=== PATIENT | female | born 1955 ===

== ENCOUNTER 2017-05-11 17:10 | Emergency (ER) | payer OTHER ==
[2017-05-11 17:19] VITALS: BP 119/69; PULSE 65; RESP 16; TEMP 97.9; O2SAT 98
[2017-05-11] MEDS ORDERED: Sodium Chloride 0.9% 1,000 ML IV STA (17:46)
[2017-05-11 18:31] LABS: RBC URINE 3 /hpf (0-3); URINE BILIRUBIN NEGATIVE (NEGATIVE); URINE BLOOD NEGATIVE (NEGATIVE); URINE COLOR YELLOW (YELLOW); URINE GLUCOSE (UA) NEG (Normal); URINE KETONE NEGATIVE (NEGATIVE); URINE LEUKOCYTE ESTERASE NEG Leu/uL (Negative); URINE PROTEIN NEGATIVE (NEGATIVE); URINE UROBILINOGEN 0.2-1.0 mg/dL (0.2-1.0); WBC URINE 1 /hpf (0-5)
[2017-05-11 18:33] LABS: BASO % 0.6 % (0.0-2.0); EOS # 0.2 K/uL (0.0-0.7); EOS % 3.1 % (0.0-4.0); HEMATOCRIT 36.8 % (34.0-47.0); LYMPH # 1.8 K/uL (1.0-4.3); MEAN CELL VOLUME 87.1 fl (81.0-99.0); MEAN CORPUSCULAR HEMOGLOBIN 28.7 pg (27.0-31.0); MEAN CORPUSCULAR HGB CONC 32.9 g/dL (33.0-37.0); MEAN PLATELET VOLUME 7.4 fl (7.2-11.7); MONO # 0.4 K/uL (0.0-0.8); MONO % 7.5 % (0.0-10.0); NEUT # 3.4 K/uL (1.8-7.0); NEUT % 57.8 % (50.0-75.0); NRBC % 0.1 % (0.0-0.0); RED CELL DISTRIBUTION WIDTH 13.1 % (11.5-14.5)
[2017-05-11 18:39] LABS: ALB/GLOB RATIO 1.4 (1.0-2.1); ALKALINE PHOSPHATASE 58 U/L (38-126); ALT/SGPT 42 U/L (9-52); AST/SGOT 32 U/L (14-36); BILIRUBIN,TOTAL 0.1 mg/dl (0.2-1.3); BLOOD UREA NITROGEN 22 mg/dl (7-17); CALCIUM 9.6 mg/dL (8.4-10.2); CARBON DIOXIDE 28 mmol/L (22-30); CHLORIDE 104 mmol/L (98-107); GFR AFRICAN-AMERICAN > 60; GLUCOSE,RANDOM 95 mg/dL (65-105); POTASSIUM 4.2 MMOL/L (3.6-5.0); SODIUM 142 mmol/l (132-148); TOTAL PROTEIN 7.4 G/DL (6.3-8.2)
[2017-05-11 19:10] LABS: THYROID STIMULATING HORMONE 2.22 mIU/ML (0.46-4.68)
--- NOTE | 2017-05-11 21:58 | ED PDOC ---
HPI: Back Time Seen by Provider: 05/11/17 17:28 Chief Complaint (Nursing): Back Pain Chief Complaint (Provider): Low back pain History Per: Patient History/Exam Limitations: no limitations Onset/Duration Of Symptoms: Days Current Symptoms Are (Timing): Still Present Quality Of Discomfort: Sharp Additional Complaint(s): Pt has not taken medications at home for pain. Pt also states yesterday she had an episode of dizziness due to severe pain and states she almost fell. Denies chest pain, SOB. Past Medical History Reviewed: Historical Data, Nursing Documentation, Vital Signs Vital Signs: Last Vital Signs Temp 97.9 F 05/11/17 17:15 Pulse 65 05/11/17 17:15 Resp 16 05/11/17 17:15 BP 119/69 05/11/17 17:15 Pulse Ox 98 05/11/17 17:15 - Medical History PMH: Hypothyroidism Denies: CAD, Diabetes, HTN - Surgical History Surgical History: No Surg Hx - Family History Family History: States: No Known Family Hx - Living Arrangements Living Arrangements: With Family - Social History Current smoker - smoking cessation education provided: No Alcohol: None Drugs: Denies - Home Medications Home Medications: Ambulatory Orders Medication Instructions Recorded Naproxen [Naprosyn] 500 mg PO BID #20 tablet 05/11/17 - Allergies Allergies/Adverse Reactions: Allergies Allergy/AdvReac Type Severity Reaction Status Date / Time No Known Allergies Allergy Verified 05/11/17 17:15 Review of Systems ROS Statement: Except As Marked, All Systems Reviewed And Found Negative Constitutional: Negative for: Fever, Chills Cardiovascular: Negative for: Chest Pain Respiratory: Negative for: Cough, Shortness of Breath, SOB with Exertion Gastrointestinal: Negative for: Nausea, Vomiting Musculoskeletal: Positive for: Back Pain Neurological: Positive for: Headache, Dizziness Physical Exam - Reviewed Nursing Documentation Reviewed: Yes Vital Signs Reviewed: Yes - Physical Exam Appears: Positive for: Well, Non-toxic, No Acute Distress Head Exam: Positive for: ATRAUMATIC, NORMAL INSPECTION, NORMOCEPHALIC Skin: Positive for: Normal Color, Warm, DRY Eye Exam: Positive for: Normal appearance ENT: Positive for: Normal ENT Inspection Neck: Positive for: Normal, Painless ROM Cardiovascular/Chest: Positive for: Regular Rate, Rhythm Respiratory: Positive for: CNT, Normal Breath Sounds Gastrointestinal/Abdominal: Positive for: Normal Exam, Bowel Sounds, Soft. Negative for: Tenderness Back: Positive for: Vertebral Tenderness. Negative for: Normal Inspection Extremity: Positive for: Normal ROM Neurologic/Psych: Positive for: Alert, Oriented - Laboratory Results Result Diagrams: 05/11/17 18:20 05/11/17 18:20 - ECG O2 Sat by Pulse Oximetry: 98 Disposition - Clinical Impression Clinical Impression: Back pain - Patient ED Disposition Is Patient to be Admitted: No - Disposition Disposition: Routine/Home Disposition Time: 21:50 Condition: STABLE Prescriptions: Naproxen [Naprosyn] 500 mg PO BID #20 tablet Instructions: Back Pain (ED) Forms: [facility] (Serbian) Print Language: VIETNAMESE
--- NOTE | 2017-05-12 08:19 | CT ---
PROCEDURE: CT HEAD WITHOUT CONTRAST. HISTORY: headaches, dizziness COMPARISON: 11/02/2011. TECHNIQUE: Axial computed tomography images were obtained through the head/brain without intravenous contrast. Radiation dose: Total exam DLP = 824.94 mGy-cm. This CT exam was performed using one or more of the following dose reduction techniques: Automated exposure control, adjustment of the mA and/or kV according to patient size, and/or use of iterative reconstruction technique. FINDINGS: HEMORRHAGE: No intracranial hemorrhage. BRAIN: Padilla-white matter differentiation is preserved. There is no mass, mass effect or abnormal extra-axial fluid collection. VENTRICLES: The ventricles are normal in size, shape and configuration. CALVARIUM: The skull base and calvarium are normal. PARANASAL SINUSES: Predominantly clear. MASTOID AIR CELLS: Predominantly clear. OTHER FINDINGS: None. IMPRESSION: No acute intracranial abnormality. A preliminary report was provided by [facility] [facility].
--- NOTE | 2017-05-12 10:42 | RAD ---
PROCEDURE: Radiographs of the Lumbar Spine. HISTORY: low back pain, worse 3 days, history of arthritis COMPARISON: No prior. FINDINGS: BONES: There is normal alignment of the lumbar vertebral bodies. Lumbar lordosis is maintained. Vertebral bodies are normal in height. There is no acute fracture, spondylolysis or spondylolisthesis. DISC SPACES: There is moderate multilevel degenerative disc disease with anterior osteophytes, reduced disc heights and multilevel facet arthropathy, worse at L5-S1. OTHER FINDINGS: None. IMPRESSION: Multilevel degenerative disc disease, worse at L5-S1.
--- NOTE | 2017-05-12 16:38 | CARD ---
APPROVED REPORT EKG Measurement Heart [id number] <Conclusion> Normal sinus rhythm Normal ECG
== END 2017-05-11 21:54 | disposition home or self-care (01) ==
LOC: H.ER 17:10
DX: M51.37 Other intervertebral disc degeneration, lumbosacral region (principal)
CPT/HCPCS: 70450; 72100; 80053; 81003; 84443; 84484; 85025; 87086; 93005; 96361; 96374; 99282; J1885; J7040

== ENCOUNTER 2017-05-19 13:57 | Emergency (ER) | payer OTHER ==
[2017-05-19 14:17] VITALS: BP 109/63; PULSE 61; RESP 18; TEMP 97; O2SAT 99
--- NOTE | 2017-05-19 14:42 | ED PDOC ---
HPI: Abdomen Time Seen by Provider: 05/19/17 14:26 Chief Complaint (Nursing): Abdominal Pain Chief Complaint (Provider): Abdominal pain History Per: Patient History/Exam Limitations: no limitations Onset/Duration Of Symptoms: Days Outside of [place] travel?: No Current Symptoms Are (Timing): Still Present Location Of Pain/Discomfort: RLQ Quality Of Discomfort: "Pain" Associated Symptoms: denies: Nausea, Vomiting, Back Pain, Urinary Symptoms Last Bowel Movement: Days Ago (2) Additional Complaint(s): 62yo female, history of thyroid disease and currently on Levothyroxin, diverticular disease, presents to ED for evaluation of abdominal pain, present for the past 1 week, mostly present in her right lower quadrant. She states over the past 2 days, she has had no bowel movements and prior to that, the stool she produced was thin in caliber. She denies any bloody stools, nausea, vomiting, fever, chills. Of note, patient was seen in this facility approximately 2 weeks ago for lower back pain, she had an XR which revealed no bony abnormalities. Patient offers no other medical complaints. Abnormal Vaginal Bleeding: No Past Medical History Reviewed: Historical Data, Nursing Documentation, Vital Signs Vital Signs: Last Vital Signs Temp 97.0 F L 05/19/17 14:14 Pulse 61 05/19/17 14:14 Resp 18 05/19/17 14:14 BP 109/63 05/19/17 14:14 Pulse Ox 99 05/19/17 14:46 - Medical History PMH: Hypothyroidism Denies: CAD, Diabetes, HTN - Surgical History Surgical History: No Surg Hx - Family History Family History: States: No Known Family Hx - Social History Current smoker - smoking cessation education provided: No Ex-Smoker (has not smoked in the last 12 months): No Alcohol: None Drugs: Denies - Home Medications Home Medications: Ambulatory Orders Medication Instructions Recorded Naproxen [Naprosyn] 500 mg PO BID #20 tablet 05/11/17 - Allergies Allergies/Adverse Reactions: Allergies Allergy/AdvReac Type Severity Reaction Status Date / Time No Known Allergies Allergy Verified 05/11/17 17:15 Review of Systems ROS Statement: Except As Marked, All Systems Reviewed And Found Negative Constitutional: Negative for: Fever, Chills Gastrointestinal: Positive for: Abdominal Pain. Negative for: Nausea, Vomiting , Hematochezia Genitourinary Female: Negative for: Dysuria, Frequency, Hematuria, Vaginal Discharge, Vaginal Bleeding Physical Exam - Reviewed Nursing Documentation Reviewed: Yes Vital Signs Reviewed: Yes - Physical Exam Appears: Positive for: Non-toxic, Uncomfortable Head Exam: Positive for: ATRAUMATIC, NORMAL INSPECTION, NORMOCEPHALIC Skin: Positive for: Normal Color, Warm, Dry Eye Exam: Positive for: Normal appearance Neck: Positive for: Supple Cardiovascular/Chest: Positive for: Regular Rate, Rhythm Respiratory: Positive for: Normal Breath Sounds Gastrointestinal/Abdominal: Positive for: Bowel Sounds (normal), Soft, Tenderness (right lower quadrant mild tenderness), Other (mild edema). Negative for: Rebound Back: Positive for: Normal Inspection, Other (mild lower lumbar tenderness bilateraly). Negative for: L CVA Tenderness, R CVA Tenderness Extremity: Positive for: Normal ROM. Negative for: Deformity Neurologic/Psych: Positive for: Alert, Oriented - ECG O2 Sat by Pulse Oximetry: 99 (RA) Pulse Ox Interpretation: Normal Medical Decision Making Medical Decision Making: Time: 1430 Impression: Right lower quadrant pain; rule out diverticulitis, appendicitis, UTI Plan: -- CT AP w/ IV contrast -- XR obstructive series -- Labs -- Urinalysis Reassess Scribe Attestation: Documented by Yael Baxter acting as a scribe for Christine Nicholson MD. Provider Attestation: All medical record entries made by the Scribe were at my direction and personally dictated by me. I have reviewed the chart and agree that the record accurately reflects my personal performance of the history, physical exam, medical decision making, and the department course for this patient. I have also personally directed, reviewed, and agree with the discharge instructions and disposition. Disposition - Clinical Impression Clinical Impression: Abdominal pain - Patient ED Disposition Is Patient to be Admitted: Transfer of Care - Disposition Disposition: Transfer of Care Disposition Time: 15:00 Condition: STABLE Forms: [employer] (Kenyan) Patient Signed Over To: Jeffrey Mills Present On Arrival: None
[2017-05-19 15:04] LABS: BASO % 0.3 % (0.0-2.0); EOS # 0.1 K/uL (0.0-0.7); EOS % 2.3 % (0.0-4.0); HEMATOCRIT 40.1 % (34.0-47.0); LYMPH # 1.7 K/uL (1.0-4.3); LYMPH % 30.5 % (20.0-40.0); MEAN CELL VOLUME 87.6 fl (81.0-99.0); MEAN CORPUSCULAR HEMOGLOBIN 28.9 pg (27.0-31.0); MEAN CORPUSCULAR HGB CONC 32.9 g/dL (33.0-37.0); MEAN PLATELET VOLUME 7.9 fl (7.2-11.7); MONO # 0.3 K/uL (0.0-0.8); NEUT # 3.4 K/uL (1.8-7.0); NEUT % 60.9 % (50.0-75.0); NRBC % 0.2 % (0.0-0.0); RED CELL DISTRIBUTION WIDTH 13.6 % (11.5-14.5); WHITE BLOOD COUNT 5.6 K/uL (4.8-10.8)
[2017-05-19 15:12] LABS: RBC URINE 1 /hpf (0-3); URINE BILIRUBIN NEGATIVE (NEGATIVE); URINE BLOOD NEGATIVE (NEGATIVE); URINE COLOR STRAW (YELLOW); URINE GLUCOSE (UA) NEG (Normal); URINE KETONE NEGATIVE (NEGATIVE); URINE LEUKOCYTE ESTERASE TRACE Leu/uL (Negative); URINE PROTEIN NEGATIVE (NEGATIVE); URINE UROBILINOGEN 0.2-1.0 mg/dL (0.2-1.0); WBC URINE < 1 /hpf (0-5)
[2017-05-19 15:13] LABS: ALB/GLOB RATIO 1.3 (1.0-2.1); ALKALINE PHOSPHATASE 70 U/L (38-126); ALT/SGPT 33 U/L (9-52); AST/SGOT 31 U/L (14-36); BILIRUBIN,TOTAL 0.4 mg/dl (0.2-1.3); BLOOD UREA NITROGEN 15 mg/dl (7-17); CALCIUM 9.4 mg/dL (8.4-10.2); CARBON DIOXIDE 28 mmol/L (22-30); CHLORIDE 104 mmol/L (98-107); GFR AFRICAN-AMERICAN > 60; GLUCOSE,RANDOM 95 mg/dL (65-105); LIPASE 111 U/L (23-300); SODIUM 141 mmol/l (132-148)
--- NOTE | 2017-05-19 15:24 | ED PDOC ---
- Laboratory Results Result Diagrams: 05/19/17 14:55 05/19/17 14:55 - ECG O2 Sat by Pulse Oximetry: 99 (RA) Pulse Ox Interpretation: Normal Medical Decision Making Medical Decision Making: Receiving sign out: Patient signed out to me by Dr. Nicholson at [address] results, labs. Scribe Attestation: Documented by Yael Baxter acting as a scribe for Jeffrey Mills MD. Provider Attestation: All medical record entries made by the Scribe were at my direction and personally dictated by me. I have reviewed the chart and agree that the record accurately reflects my personal performance of the history, physical exam, medical decision making, and the department course for this patient. I have also personally directed, reviewed, and agree with the discharge instructions and disposition. Disposition Doctor Will See Patient In The: Office Counseled Patient/Family Regarding: Studies Performed, Diagnosis, Need For Followup - Clinical Impression Clinical Impression: Abdominal pain, Leg pain - POA Present On Arrival: None - Disposition [facility]errals[facility]] Disposition: Routine/Home Disposition Time: 19:42 Condition: GOOD Additional Instructions: Take your medications as instructed. Follow up with your PCP in 2-3 days Prescriptions: Cyclobenzaprine [Cyclobenzaprine HCl] 10 mg PO TID PRN #15 tab PRN Reason: Pain, Moderate (4-7) Naproxen [Naprosyn] 500 mg PO BID #20 tablet Instructions: Groin Pain (ED) Print Language: SETSWANA Progress Note - Review of Symptoms Events since last encounter: Time: 1644 CT AP FINDINGS: LOWER THORAX: Unremarkable. LIVER: Unremarkable. No gross lesion or ductal dilatation. Incidental finding(s): Multiple small less than 1 cm hepatic cysts. GALLBLADDER AND BILE DUCTS: Unremarkable. PANCREAS: Unremarkable. No gross lesion or ductal dilatation. SPLEEN: Unremarkable. ADRENALS: Unremarkable. No mass. KIDNEYS AND URETERS: Unremarkable. No hydronephrosis. No solid mass. VASCULATURE: Unremarkable. No aortic aneurysm. BOWEL: Unremarkable. No obstruction. No gross mural thickening. APPENDIX: Normal appendix. PERITONEUM: Unremarkable. No free fluid. No free air. LYMPH NODES: Unremarkable. No enlarged lymph nodes. BLADDER: Unremarkable. REPRODUCTIVE: Unremarkable. BONES: No acute fracture. OTHER FINDINGS: None. IMPRESSION: No significant or acute findings to account for/ related to the clinical presentation. XR Obstructive series FINDINGS: CHEST: Lungs: Clear. Cardiovascular: Normal size heart. No pulmonary vascular congestion. Pleura: No pleural fluid. No pneumothorax. Other findings: None. ABDOMEN AND PELVIS: Bowel: Unremarkable bowel gas pattern. No evidence of mechanical obstruction. Free air: None. Bones: Unremarkable. Other findings: None. IMPRESSION: Unremarkable radiographs of chest and abdomen. No evidence of mechanical bowel obstruction Time: 1903 US Galbladder FINDINGS: The liver is normal in size (13.0 cm length) and texture. A small echogenic focus (3 mm size) is noted along the right lateral gallbladder wall --- perhaps a small adherent non-shadowing stone; perhaps a small mural polyp. The focus demonstrates no significant vascularity. No gallstones are otherwise seen. The gallbladder wall is thin 1.8 mm thickness. No pericholecystic fluid is appreciated. The sonographic Tidwell's sign is reported to be (-). The CBD is not dilated (3 mm diameter). The pancreas and abdominal aorta appear unremarkable. The right kidney measures 11.4 cm in length, with no hydronephrosis appreciated. No ascites is seen. IMPRESSION: No acute gallbladder pathology. Possible small polyp, or small adherent non-shadowing stone, along the gallbladder wall. No pericholecystic fluid. The sonographic Tidwell's sign is reported to be (-). No biliary obstruction.
[2017-05-19] MEDS ORDERED: Sodium Chloride 0.9% 50 ML IV ONE (15:38)
[2017-05-19] MEDS ORDERED: Iohexol 300 100 ML IJ ONE (15:38)
--- NOTE | 2017-05-19 16:42 | RAD ---
PROCEDURE: Radiographs of the chest and abdomen (obstructive series) HISTORY: RLQ pain x 1 week, constipation COMPARISON: No prior. TECHNIQUE: AP radiograph of the chest, with upright and supine radiographs of the abdomen. FINDINGS: CHEST: Lungs: Clear. Cardiovascular: Normal size heart. No pulmonary vascular congestion. Pleura: No pleural fluid. No pneumothorax. Other findings: None. ABDOMEN AND PELVIS: Bowel: Unremarkable bowel gas pattern. No evidence of mechanical obstruction. Free air: None. Bones: Unremarkable. Other findings: None. IMPRESSION: Unremarkable radiographs of chest and abdomen. No evidence of mechanical bowel obstruction. Please note: No preliminary interpretation of this examination rendered by emergency department personnel (Physician and/or PA were non-compliant in providing, as requested, preliminary report of their findings/ observations).
--- NOTE | 2017-05-19 16:46 | CT ---
PROCEDURE: CT Abdomen and Pelvis with contrast HISTORY: RLQ pain x 1week COMPARISON: None. TECHNIQUE: Contrast dose: 90 cc Omnipaque 300. Radiation dose: Total exam DLP = 1039.67 mGy-cm. This CT exam was performed using one or more of the following dose reduction techniques: Automated exposure control, adjustment of the mA and/or kV according to patient size, and/or use of iterative reconstruction technique. FINDINGS: LOWER THORAX: Unremarkable. LIVER: Unremarkable. No gross lesion or ductal dilatation. Incidental finding(s): Multiple small less than 1 cm hepatic cysts. GALLBLADDER AND BILE DUCTS: Unremarkable. PANCREAS: Unremarkable. No gross lesion or ductal dilatation. SPLEEN: Unremarkable. ADRENALS: Unremarkable. No mass. KIDNEYS AND URETERS: Unremarkable. No hydronephrosis. No solid mass. VASCULATURE: Unremarkable. No aortic aneurysm. BOWEL: Unremarkable. No obstruction. No gross mural thickening. APPENDIX: Normal appendix. PERITONEUM: Unremarkable. No free fluid. No free air. LYMPH NODES: Unremarkable. No enlarged lymph nodes. BLADDER: Unremarkable. REPRODUCTIVE: Unremarkable. BONES: No acute fracture. OTHER FINDINGS: None. IMPRESSION: No significant or acute findings to account for/ related to the clinical presentation.
--- NOTE | 2017-05-20 12:39 | US ---
HISTORY: RUQ pain COMPARISON: None. TECHNIQUE: Sonographic evaluation of the right upper quadrant of the abdomen. FINDINGS: LIVER: Measures 13.0 cm in length. Patent portal vein. Portal venous flow: Hepatopetal. Unremarkeable echogenicity of the liver parenchyma. No mass. No intrahepatic bile duct dilatation. GALLBLADDER: No gallstones identified. 3 mm gallbladder polyp. COMMON BILE DUCT: Measures 2.9 mm. No stones. No dilatation. PANCREAS: Unremarkable as visualized. No mass. No ductal dilatation. RIGHT KIDNEY: Measures 4.3 x 11.4 cm in length. Normal echogenicity. No calculus, mass, or hydronephrosis. AORTA: No aneurysmal dilatation. IVC: Unremarkable. OTHER FINDINGS: None . IMPRESSION: No acute findings related to/accounting for the clinical presentation. Concordant results (preliminary interpretation) provided by [facility]. Procedure Completed: 17:51 Preliminary ([facility]) Report: Dictated and Authenticated: 19:06 Final Interpretation: 12:37 May 20, 2017.
== END 2017-05-19 20:10 | disposition home or self-care (01) ==
LOC: H.ER 13:57
DX: R10.31 Right lower quadrant pain (principal); E03.9 Hypothyroidism, unspecified; Z91.14 Patient's other noncompliance with medication regimen
CPT/HCPCS: 74022; 74177; 76705; 80053; 81003; 83690; 85025; 96372; 99284; J1885; Q9967

== ENCOUNTER 2018-10-07 11:33 | Emergency (ER) | payer OTHER ==
[2018-10-07 11:38] VITALS: BMI 33.6
--- NOTE | 2018-10-07 12:03 | ED PDOC ---
HPI: General Adult Time Seen by Provider: 10/07/18 11:38 Chief Complaint (Provider): Dizziness History Per: Patient History/Exam Limitations: no limitations Onset/Duration Of Symptoms: Worse Since (2 weeks) Current Symptoms Are (Timing): Still Present Additional History Per: Patient Additional Complaint(s): 63yo female with history of thyroid disease, comes to ER reporting dizziness x 6 months but worsening over the past 2 weeks. She reports the dizziness worsens when turning her head to the right. Otherwise, no headache, vomiting, chest pain, palpitations, or shortness of breath. PMD: None provided Past Medical History Reviewed: Historical Data, Nursing Documentation, Vital Signs Vital Signs: Last Vital Signs Temp 98.2 F 10/07/18 11:38 Pulse 72 10/07/18 11:38 Resp 18 10/07/18 11:38 BP 123/77 10/07/18 11:38 Pulse Ox 99 10/07/18 11:38 - Medical History PMH: Hyperthyroidism, Hypothyroidism Denies: CAD, Diabetes, HTN - Surgical History Surgical History: No Surg Hx - Family History Family History: States: No Known Family Hx - Home Medications Home Medications: Ambulatory Orders Medication Instructions Recorded Cyclobenzaprine [Cyclobenzaprine 10 mg PO TID PRN #15 tab 05/19/17 HCl] Naproxen [Naprosyn] 500 mg PO BID #20 tablet 05/19/17 Meclizine [Meclizine*] 25 mg PO Q8 #15 tab 10/07/18 - Allergies Allergies/Adverse Reactions: Allergies Allergy/AdvReac Type Severity Reaction Status Date / Time No Known Allergies Allergy Verified 05/11/17 17:15 Review of Systems ROS Statement: Except As Marked, All Systems Reviewed And Found Negative Cardiovascular: Negative for: Chest Pain, Palpitations Gastrointestinal: Negative for: Nausea Neurological: Positive for: Dizziness. Negative for: Weakness, Headache Physical Exam - Reviewed Nursing Documentation Reviewed: Yes Vital Signs Reviewed: Yes - Physical Exam Appears: Positive for: Non-toxic, No Acute Distress Head Exam: Positive for: ATRAUMATIC, NORMAL INSPECTION, NORMOCEPHALIC Skin: Positive for: Normal Color Eye Exam: Positive for: Normal appearance, EOMI, PERRL. Negative for: Nystagmus Neck: Positive for: Supple Cardiovascular/Chest: Positive for: Regular Rate, Rhythm. Negative for: Tachycardia Respiratory: Positive for: Normal Breath Sounds. Negative for: Respiratory Distress Gastrointestinal/Abdominal: Positive for: Soft Extremity: Positive for: Normal ROM. Negative for: Deformity Neurological/Psych: Positive for: Awake, Alert, Oriented (x 3), Gait (steady). Negative for: Motor/Sensory Deficits - Laboratory Results Result Diagrams: 10/07/18 12:12 10/07/18 12:12 - ECG O2 Sat by Pulse Oximetry: 99 (RA) Pulse Ox Interpretation: Normal Medical Decision Making Medical Decision Making: Dizziness, worse over 2 weeks Plan: -- Labs -- EKG -- Meclizine 25mg PO EKG: Normal sinus rhythm @65BPM No ST changes Scribe Attestation: Documented by Yael Baxter, acting as a scribe for Chaparro Staples MD Provider Scribe Attestation: All medical record entries made by the Scribe were at my direction and personally dictated by me. I have reviewed the chart and agree that the record accurately reflects my personal performance of the history, physical exam, medical decision making, and the department course for this patient. I have also personally directed, reviewed, and agree with the discharge instructions and disposition. Disposition - Clinical Impression Clinical Impression: Vertigo - Patient ED Disposition Is Patient to be Admitted: No Counseled Patient/Family Regarding: Studies Performed, Diagnosis, Need For Followup, Rx Given - Disposition Referrals: [facility] [Outside] Disposition: Routine/Home Disposition Time: 12:52 Condition: FAIR Prescriptions: Meclizine [Meclizine*] 25 mg PO Q8 #15 tab Instructions: Vertigo (a Type of Dizziness) Print Language: ITALIAN
[2018-10-07 12:20] LABS: BASO % 0.6 % (0.0-2.0); EOS # 0.1 K/uL (0.0-0.7); EOS % 2.8 % (0.0-4.0); HEMOGLOBIN 12.7 g/dL (12.0-16.0); LYMPH # 1.6 K/uL (1.0-4.3); LYMPH % 32.8 % (20.0-40.0); MEAN CELL VOLUME 88.3 fl (81.0-99.0); MEAN CORPUSCULAR HEMOGLOBIN 29.7 pg (27.0-31.0); MEAN CORPUSCULAR HGB CONC 33.6 g/dL (33.0-37.0); MEAN PLATELET VOLUME 7.5 fl (7.2-11.7); MONO # 0.3 K/uL (0.0-0.8); NEUT # 2.9 K/uL (1.8-7.0); NEUT % 57.8 % (50.0-75.0); RBC 4.29 Mil/uL (3.80-5.20); RED CELL DISTRIBUTION WIDTH 13.5 % (11.5-14.5)
[2018-10-07 12:40] LABS: ALB/GLOB RATIO 1.3 (1.0-2.1); ALBUMIN 4.1 g/dL (3.5-5.0); ALT/SGPT 29 U/L (9-52); AST/SGOT 28 U/L (14-36); BLOOD UREA NITROGEN 21 mg/dl (7-17); CALCIUM 9.6 mg/dL (8.4-10.2); GFR NON-AFRICAN AMERICAN > 60
[2018-10-07 14:00] VITALS: BP 130/70; PULSE 74; RESP 20; TEMP 98.6; O2SAT 98
--- NOTE | 2018-10-07 20:19 | CARD ---
APPROVED REPORT Date of service: 10/07/2018 EKG Measurement Heart [id number] [id number] <Conclusion> Normal sinus rhythm Normal ECG
== END 2018-10-07 14:00 | disposition home or self-care (01) ==
LOC: H.ER 11:33
DX: R42 Dizziness and giddiness (principal); E03.9 Hypothyroidism, unspecified; E05.90 Thyrotoxicosis, unspecified without thyrotoxic crisis or storm